=== PATIENT | male | born 1960 | race African-American/Black ===

== ENCOUNTER 2019-05-03 23:24 | Observation (INO) | payer SELFPAY ==
[2019-05-03] MEDS ORDERED: NA CHLORIDE 0.9% 1,000 ML ONE (23:39)
[2019-05-04 00:19] LABS: Absolute Lymphocytes (CBC) 0.8 K/uL (0.7-4.9); Basophils % 0.4 % (0-1.3); Hematocrit 38.9 % (39.6-49.0); Lymphocytes % 7.3 % (15.3-44.8); MPV 9.4 fL (7.6-11.3); RBC Red Blood Cell Count 4.07 M/uL (4.33-5.43)
[2019-05-04 01:03] LABS: Barbiturates NEGATIVE (NEGATIVE); Benzodiazepines NEGATIVE (NEGATIVE); Cocaine POSITIVE (NEGATIVE); METHAMPHETAM NEGATIVE (NEGATIVE); Methadone NEGATIVE (NEGATIVE); Opiates NEGATIVE (NEGATIVE); Phencyclidine NEGATIVE (NEGATIVE); THC Cannibis NEGATIVE (NEGATIVE)
[2019-05-04 01:08] LABS: Potassium 3.7 mmol/L (3.5-5.1); Sodium Level 137 mmol/L (136-145)
[2019-05-04 01:11] LABS: BUN Blood Urea Nitrogen 14 mg/dL (7-18); Bicarbonate 27 mmol/L (21-32); Glucose Level 308 mg/dL (74-106)
[2019-05-04 01:13] LABS: Bilirubin Direct < 0.1 mg/dL (0-0.2)
[2019-05-04 01:19] LABS: ALT/SGPT 28 U/L (12-78); AST/SGOT 30 U/L (15-37); Alkaline Phosphatase 64 U/L (45-117); Bilirubin Total 0.2 mg/dL (0.2-1.0); Protein, Total 8.5 g/dL (6.4-8.2)
[2019-05-04 01:21] LABS: Protime INR 0.94
[2019-05-04 02:03] LABS: Urine Blood NEGATIVE (NEG); Urine Glucose 2+ (NEG); Urine Protein 2+ (NEG); Urine pH 5.5 (5.0-7.0)
[2019-05-04 02:13] LABS: Blood Morphology Comment NOT SEEN (NOT SEEN); Platelet Estimate ADEQ
--- NOTE | 2019-05-04 02:25 | EDPHYS ---
Physician Documentation [facility] Name: Juni Renteria Age: 58 yrs Sex: Male : 1960 Arrival Date: 05/03/2019 Time: 23:25 Bed 6 Private MD: ED Physician Nate Pop HPI: 05/03 23:37 This 58 yrs old Black Male presents to ER via EMS with complaints of AMS, possible rn overdose. 23:37 The patient presents with decreased responsiveness. Onset: The symptoms/episode rn began/occurred just prior to arrival. Possible causes: drug use. Current symptoms: In the emergency department the patient's symptoms have improved. It is unknown whether or not the patient has had similar symptoms in the past. The patient has not recently seen a physician. Per EMS, called out for unresponsiveness, was minimally responsive, given narcan x 2, with improvement. Admits to ETOH/cocaine/marijuana a few hours earlier, but feels like something was in it because "began tripping". Denies trauma. . Historical: - Allergies: 23:29 No Known Allergies; lp1 - Home Meds: 05/04 00:45 Levemir 100 unit/mL subcutaneous soln [Active]; Glipizide Oral [Active]; pravastatin rr5 oral oral [Active]; Metformin Oral [Active]; - PMHx: 05/03 23:29 Diabetes - IDDM; Hyperlipidemia; lp1 - Immunization history:: Adult Immunizations unknown. - Social history:: Smoking status: Patient uses tobacco products, smokes one-half pack cigarettes per day, Patient uses alcohol, street drugs, cocaine, marijuana. - Ebola Screening: : No symptoms or risks identified at this time. - Family history:: not pertinent. - Hospitalizations: : No recent hospitalization is reported. ROS: 23:39 Constitutional: Negative for fever, chills, and weight loss, Eyes: Negative for injury, rn pain, redness, and discharge, Neck: Negative for injury, pain, and swelling, Cardiovascular: Negative for chest pain, palpitations, and edema, Respiratory: Negative for shortness of breath, cough, wheezing, and pleuritic chest pain, Abdomen/GI: Negative for abdominal pain, nausea, vomiting, diarrhea, and constipation, MS/Extremity: Negative for injury and deformity, Skin: Negative for injury, rash, and discoloration, Neuro: Negative for headache, weakness, numbness, tingling, and seizure. Exam: 23:39 Constitutional: Somnolent but awakens to voice Head/Face: Normocephalic, atraumatic. rn Eyes: Pupils equal round and reactive to light, extra-ocular motions intact. No nystagmus ENT: dry MM Cardiovascular: Regular rate and rhythm. No pulse deficits. Respiratory: No increased work of breathing, no retractions or nasal flaring. Abdomen/GI: soft, non-tender MS/ Extremity: Pulses equal, no cyanosis. Neurovascular intact. Full, normal range of motion. Equal circumference. Neuro: Somnolent, arousable easily to voice, moves all 4 ext, follows commands. Vital Signs: 23:28 BP 129 / 89; Pulse 84; Resp 14; Temp 97.3(TE); Pulse Ox 100% on R/A; Weight 72.57 kg lp1 (R); Height 6 ft. 0 in. (182.88 cm); Pain 0/10; 05/04 00:30 BP 121 / 75; Pulse 80; Resp 14; Pulse Ox 96% on R/A; rr5 01:00 BP 131 / 80; Pulse 75; Resp 13; Temp 97.5; Pulse Ox 95% ; rr5 02:00 BP 126 / 70; Pulse 89; Resp 17; Pulse Ox 94% ; rr5 03:00 BP 137 / 92; Pulse 82; Resp 15; Temp 97.5; Pulse Ox 95% ; Pain 0/10; rr5 04:10 BP 126 / 83; Pulse 76; Resp 16; Temp 97.8; Pulse Ox 99% on 1 lpm NC; rr5 05/03 23:28 Body Mass Index 21.70 (72.57 kg, 182.88 cm) lp1 [place] Coma Score: 05/03 23:28 Eye Response: spontaneous(4). Verbal Response: confused(4). Motor Response: obeys rr5 commands(6). Total: 14. MDM: 23:30 Patient medically screened. rn 05/04 02:21 Differential Diagnosis: electrolyte abnormality, intracranial bleed, overdose, volume rn depletion, AMI. Data reviewed: vital signs, nurses notes, lab test result(s), EKG, radiologic studies, CT scan, and as a result, I will admit patient. Counseling: I had a detailed discussion with the patient and/or guardian regarding: the historical points, exam findings, and any diagnostic results supporting the discharge/admit diagnosis, lab results, radiology results, the need for further work-up and treatment in the hospital. Response to treatment: the patient's symptoms have mildly improved after treatment, and as a result, I will admit patient. Admission orders: after a detailed discussion of the patient's condition and case, the admit orders are written by me. ED course: Pt with drug overdose, cocaine ingestion, and elevated trop, will admit for serial markers, and fluids, still sedated but protecting airway.. 05/03 23:34 Order name: Acetaminophen; Complete Time: 01: 05/03 23:34 Order name: Basic Metabolic Panel; Complete Time: : 05/03 23:34 Order name: CBC with Diff rn 05/03 23:34 Order name: ETOH Level; Complete Time: : 05/03 23:34 Order name: Hepatic Function; Complete Time: : 05/03 23:34 Order name: PT-INR; Complete Time: : rn 05/03 23:34 Order name: Ptt, Activated; Complete Time: : 05/03 23:34 Order name: Salicylate; Complete Time: 00: 05/03 23:34 Order name: Urine Drug Screen; Complete Time: : 05/03 23:34 Order name: Urine Dipstick--Ancillary (enter results) cm6 05/04 00:00 Order name: Troponin (emerg Dept Use Only); Complete Time: 01: 05/04 00:34 Order name: Manual Differential EDMA 05/04 02:53 Order name: CKMB Creatine Kinase MB EDMA 05/04 02:53 Order name: CKMB Creatine Kinase MB EDMA 05/03 23:34 Order name: EKG; Complete Time: 23:35 05/03 23:39 Order name: CT Head Brain wo Cont 05/04 02:53 Order name: Heart Healthy EDMA 05/04 02:53 Order name: CKMB Creatine Kinase MB EDMA 05/04 02:53 Order name: CKMB Creatine Kinase MB EDMA 05/04 02:53 Order name: Comprehensive Metabolic Panel [facility] 05/04 02:54 Order name: Comprehensive Metabolic Panel EDMA 05/04 02:54 Order name: Troponin I EDMA 05/04 02:54 Order name: Troponin I EDMA 05/04 02:54 Order name: Troponin I EDMA 05/04 02:54 Order name: Troponin I EDMA 05/04 02:56 Order name: Urinalysis EDMA 05/04 02:56 Order name: CBC with Automated Diff EDMA 05/04 02:56 Order name: CBC with Automated Diff EDMA 05/04 03:08 Order name: EKG Electrocardiogram EDMA 05/03 23:34 Order name: EKG - Nurse/Tech; Complete Time: 23:54 rn 05/03 23:34 Order name: IV Saline Lock; Complete Time: 23:54 rn 05/03 23:34 Order name: Labs collected and sent; Complete Time: 23:54 rn 05/03 23:34 Order name: Urine Dipstick-Ancillary (obtain specimen); Complete Time: 23:52 rn 05/04 03:08 Order name: EKG Electrocardiogram EDMA Administered Medications: 05/03 23:54 Drug: NS 0.9% 1000 ml Route: IV; Rate: 1000 ml; Site: left antecubital; rr5 05/04 01:00 Follow up: Response: No adverse reaction; IV Status: Completed infusion; IV Intake: rr5 1000ml Disposition: 05/04/19 02:24 Hospitalization ordered by Vahe Combs for Observation. Preliminary diagnosis are Altered mental status, unspecified, Cocaine abuse with intoxication, Cocaine abuse with other cocaine-induced disorder - elevated troponin. - Bed requested for Telemetry/MedSurg (observation). - Status is Observation. rr5 - Condition is Stable. - Problem is new. - Symptoms have improved. UTI on Admission? No Signatures: Dispatcher [employer] EDMS Nate Pop MD MD rn Pena, Laura RN RN lp1 Liana Lopes, ART RN cg Juancho Pulido RN RN rr5 Corrections: (The following items were deleted from the chart) 02:59 02:24 Hospitalization Ordered by Vahe Combs MD for Observation. Preliminary cg diagnosis is Altered mental status, unspecified; Cocaine abuse with intoxication; Cocaine abuse with other cocaine-induced disorder - elevated troponin. Bed requested for Telemetry/MedSurg (observation). Status is Observation. Condition is Stable. Problem is new. Symptoms have improved. UTI on Admission? No. rn 04:31 02:59 05/04/2019 02:24 Hospitalization Ordered by Vahe Combs MD for Observation. rr5 Preliminary diagnosis is Altered mental status, unspecified; Cocaine abuse with intoxication; Cocaine abuse with other cocaine-induced disorder - elevated troponin. Bed requested for Telemetry/MedSurg (observation). Status is Observation. Condition is Stable. Problem is new. Symptoms have improved. UTI on Admission? No. cg
--- NOTE | 2019-05-04 02:25 | ER ---
Nurse's Notes [facility] Name: Juni Renteria Age: 58 yrs Sex: Male : 1960 Arrival Date: 05/03/2019 Time: 23:25 Bed 6 Private MD: Diagnosis: Altered mental status, unspecified;Cocaine abuse with intoxication;Cocaine abuse with other cocaine-induced disorder-elevated troponin Presentation: 05/03 23:27 Presenting complaint: EMS states: Called for patient who was unresponsive, on arrival lp1 of EMS, patient breathing but unresponsive, Narcan x2 administered, patient became arousable, continues to be drowsy, admits to smoking marijuana and cocaine today, +ETOH. Transition of care: patient was not received from another setting of care. Onset of symptoms was May 03, 2019. Risk Assessment: Do you want to hurt yourself or someone else? Patient reports no desire to harm self or others. Initial Sepsis Screen: Does the patient meet any 2 criteria? No. Patient's initial sepsis screen is negative. Does the patient have a suspected source of infection? No. Patient's initial sepsis screen is negative. Care prior to arrival: IV initiated. 18 GA, in the left antecubital area, Glucose check: 293. 23:27 Method Of Arrival: EMS: [facility] lp1 23:27 Acuity: CLAUDETTE 2 lp1 Triage Assessment: 23:29 General: Patient using urinal at this time . lp1 Historical: - Allergies: 23:29 No Known Allergies; lp1 - Home Meds: 05/04 00:45 Levemir 100 unit/mL subcutaneous soln [Active]; Glipizide Oral [Active]; pravastatin rr5 oral oral [Active]; Metformin Oral [Active]; - PMHx: 05/03 23:29 Diabetes - IDDM; Hyperlipidemia; lp1 - Immunization history:: Adult Immunizations unknown. - Social history:: Smoking status: Patient uses tobacco products, smokes one-half pack cigarettes per day, Patient uses alcohol, street drugs, cocaine, marijuana. - Ebola Screening: : No symptoms or risks identified at this time. - Family history:: not pertinent. - Hospitalizations: : No recent hospitalization is reported. Screenin:30 Abuse screen: Denies threats or abuse. Denies injuries from another. Nutritional lp1 screening: No deficits noted. Tuberculosis screening: No symptoms or risk factors identified. Fall Risk Total Morton Fall Scale indicates High Risk Score (45 or more points). Fall prevention measures have been instituted. Side Rails Up X 2 Family Present and informed to notify staff if the need to leave the bedside As available patient and family educated on Fall Prevention Program and Strategies. Assessment: 23:30 General: Appears in no apparent distress. Behavior is drowsy. rr5 23:30 Pain: Unable to use pain scale. Patient is disoriented. Neuro: Level of Consciousness rr5 is confused. Cardiovascular: Capillary refill < 3 seconds Patient's skin is warm and dry. Respiratory: Airway is patent Respiratory effort is even, unlabored, Respiratory pattern is regular, symmetrical. GI: No signs and/or symptoms were reported involving the gastrointestinal system. : No signs and/or symptoms were reported regarding the genitourinary system. EENT: No signs and/or symptoms were reported regarding the EENT system. Derm: Skin is intact, is healthy with good turgor, Skin temperature is warm. Musculoskeletal: Capillary refill < 3 seconds. 05/04 00:40 Reassessment: Patient appears in no apparent distress at this time. Patient is alert, rr5 oriented x 3, equal unlabored respirations, skin warm/dry/pink. patient more awake responsive and answered questions correctly. 02:30 Reassessment: Patient appears in no apparent distress at this time. Patient is alert, rr5 oriented x 3, equal unlabored respirations, skin warm/dry/pink. vital signs taken and recorded. Patient states feeling better. Patient states symptoms have improved. 03:30 Reassessment: Patient appears in no apparent distress at this time. Patient is alert, rr5 oriented x 3, equal unlabored respirations, skin warm/dry/pink. resting eyes closed breathing spontaneously at room air. Vital Signs: 05/03 23:28 BP 129 / 89; Pulse 84; Resp 14; Temp 97.3(TE); Pulse Ox 100% on R/A; Weight 72.57 kg lp1 (R); Height 6 ft. 0 in. (182.88 cm); Pain 0/10; 05/04 00:30 BP 121 / 75; Pulse 80; Resp 14; Pulse Ox 96% on R/A; rr5 01:00 BP 131 / 80; Pulse 75; Resp 13; Temp 97.5; Pulse Ox 95% ; rr5 02:00 BP 126 / 70; Pulse 89; Resp 17; Pulse Ox 94% ; rr5 03:00 BP 137 / 92; Pulse 82; Resp 15; Temp 97.5; Pulse Ox 95% ; Pain 0/10; rr5 04:10 BP 126 / 83; Pulse 76; Resp 16; Temp 97.8; Pulse Ox 99% on 1 lpm NC; rr5 05/03 23:28 Body Mass Index 21.70 (72.57 kg, 182.88 cm) lp1 [place] Coma Score: 05/03 23:28 Eye Response: spontaneous(4). Verbal Response: confused(4). Motor Response: obeys rr5 commands(6). Total: 14. ED Course: 23:25 Patient arrived in ED. ds1 23:28 Triage completed. lp1 23:29 Arm band placed on. lp1 23:30 Nate Pop MD is Attending Physician. rn 23:30 Patient has correct armband on for positive identification. Placed in gown. Bed in low lp1 position. environmental monitoring specialist on. Pulse ox on. NIBP on. 23:34 Juancho Pulido, ART is Primary Nurse. rr5 23:45 Maintain EMS IV. Dressing intact. Good blood return noted. Site clean \T\ dry. Gauge \T\ rr 5 site: G18 left AC. 23:50 Initial lab(s) drawn, by me, sent to lab. rr5 05/04 00:40 CT Head Brain wo Cont In Process Unspecified. EDMS 01:01 CT completed. Patient tolerated procedure well. Patient moved to CT via stretcher. Patient moved back from CT. 02:23 Vahe Combs MD is Hospitalizing Provider. rn 03:39 No provider procedures requiring assistance completed. Patient admitted, IV remains in rr5 place. intact, No redness/swelling at site. Administered Medications: 05/03 23:54 Drug: NS 0.9% 1000 ml Route: IV; Rate: 1000 ml; Site: left antecubital; rr5 05/04 01:00 Follow up: Response: No adverse reaction; IV Status: Completed infusion; IV Intake: rr5 1000ml Intake: 01:00 IV: 1000ml; Total: 1000ml. rr5 Output: 00:49 Urine: 400ml (Voided); Total: 400ml. rr5 Outcome: 02:24 Decision to Hospitalize by Provider. rn 03:43 Admitted to Med/surg accompanied by tech, via stretcher, room 206, with chart, Report rr5 called to nelida 03:43 Condition: stable 03:43 Instructed on the need for admit. 04:31 Patient left the ED. rr5 Signatures: Dispatcher [employer] EDEdis Mejias Demi ds1 Nate Pop MD MD rn Pena, Laura, RN RN lp1 Juancho Pulido RN RN rr5 Corrections: (The following items were deleted from the chart) 03:49 12 23:30 Neuro: Level of Consciousness is confused, Oriented to person, place, rr5 rr5
[2019-05-04] MEDS ORDERED: ACETAMINOPHEN 500 MG TAB PO PRN (02:49)
[2019-05-04] MEDS ORDERED: ONDANSETRON 4 MG/2 ML VIAL IV PRN (02:49)
--- NOTE | 2019-05-04 02:58 | P.HP ---
Certification for Inpatient Patient admitted to: Observation With expected LOS: <2 Midnights Practitioner: I am a practitioner with admitting privileges, knowledge of patient current condition, hospital course, and medical plan of care. Services: Services provided to patient in accordance with Admission requirements found in Title 42 Section 412.3 of the Code of Federal Regulations Patient History Date of Service: 05/04/19 Reason for admission: AMS History of Present Illness: 58 yo AAM with no significant past medical history came with altered mental status . Patient is drowsy but arousable hence most of the history is obtained from the family member who is at the bedside. He was brought to ER as he was found decrease responsive with possible drug usage . The family Emetrol that she call on EMS because of the altered mental status and had given 2 doses of Narcan. He has been using alcohol or marijuana and cocaine before the episode happened. Denies any chest pain or shortness of breath. No fever no chills no syncope or seizure-like episodes . Denies any nausea vomiting and diarrhea. Appears more awake alert at the time of examination. He was also found to have elevated troponin and was admitted for close monitoring and management. Home medications list reviewed: Yes - Past Medical/Surgical History Past Medical History: Reviewed- Non-Contributory Past Surgical History: Reviewed- Non-Contributory - Family History Family History: Reviewed- Non-Contributory - Social History Smoking Status: Current every day smoker Review of Systems 10-point ROS is otherwise unremarkable Physical Examination - Vital Signs Temperature: 98.1 F Blood Pressure: 136/88 Pulse: 88 Respirations: 18 - Physical Exam General: Alert, In no apparent distress HEENT: Atraumatic, Normocephalic Neck: Supple, 2+ carotid pulse no bruit Respiratory: Clear to auscultation bilaterally, Normal air movement Cardiovascular: Normal pulses, Regular rate/rhythm Capillary refill: <2 Seconds Gastrointestinal: Soft and benign, W/out hepatosplenomegaly Musculoskeletal: No clubbing, No swelling Integumentary: No rashes, No breakdown Neurological: Other (drowsy) Lymphatics: No axilla or inguinal lymphadenopathy External genitalia: Deferred Rectal: Deferred - Studies Laboratory Data (last 24 hrs) 05/03/19 23:59: PT 11.1, INR 0.94, APTT 24.9 05/03/19 23:45: WBC 11.0 H, Hgb 12.8 L, Hct 38.9 L, Plt Count 254 05/03/19 23:34: Sodium 137, Potassium 3.7, BUN 14, Creatinine 1.12, Glucose 308 H, Total Bilirubin 0.2, AST 30, ALT 28, Alkaline Phosphatase 64 Assessment and Plan - Problems (Diagnosis) (1) Acute encephalopathy Current Visit: Yes Status: Acute (2) Substance abuse Current Visit: Yes Status: Acute (3) Elevated troponin Current Visit: Yes Status: Acute - Plan Acute encephalopathy possibly due to substance abuse Polysubstance abuse Elevated troponin Plan Monitor under telemetry Trend cardiac enzymes IV fluids Discuss about substance abuse and about the need to stop discussed about the resources like rehab Start on aspirin, statin will get a repeat EKG in a.m. GI/DVT prophylaxis Discharge Plan: Home Plan to discharge in: 24 Hours - Advance Directives Does patient have a Living Will: No Does patient have a Durable POA for Healthcare: No Time Spent Managing Pts Care (In Minutes): 43
[2019-05-04 03:46] LABS: CKMB Creatine Kinase MB 3.6 ng/mL (0.3-3.6); Troponin I 0.07 ng/mL (0.0-0.045)
[2019-05-04] MEDS: NA CHLORIDE 0.9% 1,000 ML IV SCH ×2 (05:09→13:08)
[2019-05-04 08:18] VITALS: O2SAT 92
[2019-05-04] MEDS ORDERED: POTASSIUM CL SA 10 MEQ TAB PO ONE (09:00)
[2019-05-04] MEDS ORDERED: ASPIRIN EC 81 MG TAB PO SCH (09:00)
[2019-05-04] MEDS ORDERED: ENOXAPARIN 40 MG/0.4 ML SQ SCH (09:00)
[2019-05-04 11:43] LABS: Troponin I 0.26 ng/mL (0.0-0.045)
--- NOTE | 2019-05-04 11:44 | EKG ---
Test Date: 2019-05-03 Test Time: 23:57:16 News Video Editor: SCOTTIE MEASUREMENT RESULTS: Intervals: Rate: 84 NE: 206 QRSD: 168 QT: 434 QTc: 512 [place]: P: 58 NE: 206 QRS: -7 T: 35 INTERPRETIVE STATEMENTS: Normal sinus rhythm Right bundle branch block Minimal voltage criteria for LVH, may be normal variant Abnormal ECG No previous ECG available for comparison Electronically Signed On 05-04-19 11:41:59 EQUIPMENT CLEANER by Yossi Chapa
[2019-05-04 13:22] VITALS: BMI 21.5
[2019-05-04 14:36] VITALS: TEMP 98.6
[2019-05-04 17:57] VITALS: BP 139/85
[2019-05-04] MEDS ORDERED: METOPROLOL TAR 25 MG TAB PO SCH (18:00)
[2019-05-04 19:40] LABS: CKMB Creatine Kinase MB 2.9 ng/mL (0.3-3.6); Troponin I 0.32 ng/mL (0.0-0.045)
[2019-05-04] MEDS ORDERED: ATORVASTATIN 40 MG TAB PO SCH (21:00)
--- NOTE | 2019-05-05 04:04 | DS ---
Date of Discharge: 05/04/2019 Discharge Diagnoses: 1.Mental status change, resolved. 2.Drug abuse with cocaine. 3.Elevated troponin. For history of present illness, please refer to patient's admission note. Procedure: CT of the head was negative on preliminary, there is no other report available at the walker e of discharge. Consult: None. Hospital Course: Initially, the patient presented with change in mental status. He was very drowsy, but arousable. Urine drug screen was positive for cocaine. Patient apparently was using cocaine as well as marijuana. Patient's labs showed borderline elevated troponin at 0.07, second set was eleva rosalina at 0.26. Patient refused to stay in the hospital to be ruled out. We will consult Cardiology an d he decided to leave against medical advice. He signed AMA and left. Patient understands the risk of coronary artery spasm, heart attack with cocaine abuse. He is advised strongly to avoid the use o f cocaine. Otherwise there was no discharge medications and discharge instructions. Patient was exa mined this morning by the admitting physician. LAURYN/JOHNATHON Voice ID: [id number] Report ID: [id number]
--- NOTE | 2019-05-05 08:40 | RAD REPORT ---
EXAM DESCRIPTION: CT - Head Brain Wo Cont - 05/04/2019 5:23 am CLINICAL HISTORY: 58 years Male CONFUSED TECHNIQUE: Contiguous axial CT images obtained through the brain without IV contrast. Coronal and sa gittal reformats also provided. This CT exam was performed according to our departmental dose-optimization program, which includes on e or more of the following dose reduction techniques: automated exposure control, adjustment of the m A and/or kV according to patient size, and/or use of iterative reconstruction technique. COMPARISON: No prior exams provided for comparison. FINDINGS: There is no intracranial hemorrhage, extra-axial collection, or acute transcortical infarc tion. The ventricles are normal in size and contour without mass-effect or midline shift. Osseous structures are normal. The paranasal sinuses and mastoid air cells are clear. IMPRESSION: No acute intracranial abnormalities. Electronically signed by: Yvonne Jerome MD 05/04/2019 12:46 AM CONDUIT BENDER Due to temporary technical issues with the PACS/Fluency reporting system, reports are being signed by the in house radiologist as a courtesy to ensure prompt reporting. The interpreting radiologist is f ully responsible for the content of the report.
[2019-05-05] MEDS ORDERED: ENOXAPARIN 80 MG/0.8 ML SQ SCH (09:00)
[2019-05-05] MEDS ORDERED: ASPIRIN 325 MG TAB PO SCH (09:00)
== END 2019-05-04 20:00 | disposition left against medical advice (07) ==
LOC: ER 23:24 → ERHOLD 05-04 03:27 → 2ND 05-04 03:58
PROVIDERS: ADMIT Family Medicine; ATTEND Family Medicine
DX: R41.82 Altered mental status, unspecified (principal); F14.10 Cocaine abuse, uncomplicated; R79.89 Other specified abnormal findings of blood chemistry; Z53.29 Procedure and treatment not carried out because of patient's decision for other reasons; F17.210 Nicotine dependence, cigarettes, uncomplicated
CPT/HCPCS: 36415; 70450; 80048; 80076; 80307; 80320; 80329; 81003; 82553; 82947; 84484; 85025; 85610; 85730; 93005; 94760; 96360; 99285; G0378; J1650; J7030

== ENCOUNTER 2019-05-17 08:58 | Emergency (ER) | payer SELFPAY ==
--- OUTSIDE RECORDS SUMMARY | 2019-05-17 09:00 | XMS REPORT ---
:1960 [facility] Address [address] [place] [address] Care Team Providers Name Role Phone Unavailable Unavailable Unavailable Problems This patient has no known problems. Allergies, Adverse Reactions, Alerts This patient has no known allergies or adverse reactions. Medications This patient has no known medications. Results Test Description Test Time Test Comments Text Results Atomic Results Result Comments Comprehensive Metabolic Panel 2017-09-05 14:09:47 Test Item Value Reference Range Comments Sodium Level (test code=Sodium Level) 140.0 mmol/L 135.0-145.0 Potassium Level (test code=Potassium Level) 5.1 mmol/L 3.5-5.1 Chloride Level (test code=Chloride Level) 96 mmol/L 98-105 CO2 (test code=CO2) 18 mmol/L 22-29 Anion Gap (test code=Anion Gap) 26 mmol/L 7-16 BUN (test code=BUN) 13.30 mg/dL 6.00-20.00 Creatinine Level (test code=Creatinine Level) 0.90 mg/dL 0.70-1.20 BUN/Creat Ratio (test code=BUN/Creat Ratio) 15 Glucose Level (test code=Glucose Level) 144 mg/dL 70-115 Calcium Level (test code=Calcium Level) 9.8 mg/dL 8.3-10.5 Alk Phos (test code=Alk Phos) 67 U/L 40-129 Bilirubin Total (test code=Bilirubin Total) 0.4 mg/dL 0.1-0.9 Albumin Level (test code=Albumin Level) 4.8 g/dL 3.5-5.2 Protein Total (test code=Protein Total) 8.5 g/dL 6.4-8.3 ALT (test code=ALT) 25 U/L 1-41 AST (test code=AST) 34 U/L 1-40 Globulin (test code=Globulin) 3.7 g/dL 2.9-3.1 A/G Ratio (test code=A/G Ratio) 1.3 ratio Comprehensive Metabolic [id number] 14:09:47 Test Item Value Reference Range Comments Sodium Level (test 140.0 mmol/L 135.0-145.0 code=Sodium Level) Potassium Level (test 5.1 mmol/L 3.5-5.1 code=Potassium Level) Chloride Level (test 96 mmol/L 98-105 code=Chloride Level) CO2 (test code=CO2) 18 mmol/L 22-29 Anion Gap (test 26 mmol/L 7-16 code=Anion Gap) BUN (test code=BUN) 13.30 mg/dL 6.00-20.00 Creatinine Level (test 0.90 mg/dL 0.70-1.20 code=Creatinine Level) BUN/Creat Ratio (test 15 code=BUN/Creat Ratio) Glucose Level (test 144 mg/dL 70-115 code=Glucose Level) Calcium Level (test 9.8 mg/dL 8.3-10.5 code=Calcium Level) Alk Phos (test code=Alk 67 U/L 40-129 Phos) Bilirubin Total (test 0.4 mg/dL 0.1-0.9 code=Bilirubin Total) Albumin Level (test 4.8 g/dL 3.5-5.2 code=Albumin Level) Protein Total (test 8.5 g/dL 6.4-8.3 code=Protein Total) ALT (test code=ALT) 25 U/L 1-41 AST (test code=AST) 34 U/L 1-40 Globulin (test 3.7 g/dL 2.9-3.1 code=Globulin) A/G Ratio (test code=A/G 1.3 ratio Ratio) eGFR AA (test code=eGFR >60 mL/min/1.73 m2 eGFR (estimated AA) Glomerular Filtration Rate) is an estimated value, calculated from the patient's serum creatinine using the MDRD equation. It is NOT the patient's actual GFR. The eGFR provides a more clinically useful measure of kidney disease than serum creatinine alone.This calculation takes sex and race into account, if the information is provided. If the race is not provided, and the patient is -Swiss, multiply by 1.212. If sex is not provided, and the patient is female, multiply by 0.742. Results for patients <18 years of age have not been validated by the MDRD study and should be interpreted with caution. eGFR Result Interpretation:eGFR > or=60 is in the Normal RangeeGFR < 60 may mean kidney diseaseeGFR < 15 may mean kidney failure Ranges recommended by the National Kidney Foundation, http://nkdep.nih.gov Comprehensive Metabolic [id number] 14:09:47 Test Item Value Reference Range Comments Sodium Level (test 140.0 mmol/L 135.0-145.0 code=Sodium Level) Potassium Level (test 5.1 mmol/L 3.5-5.1 code=Potassium Level) Chloride Level (test 96 mmol/L 98-105 code=Chloride Level) CO2 (test code=CO2) 18 mmol/L 22-29 Anion Gap (test 26 mmol/L 7-16 code=Anion Gap) BUN (test code=BUN) 13.30 mg/dL 6.00-20.00 Creatinine Level (test 0.90 mg/dL 0.70-1.20 code=Creatinine Level) BUN/Creat Ratio (test 15 code=BUN/Creat Ratio) Glucose Level (test 144 mg/dL 70-115 code=Glucose Level) Calcium Level (test 9.8 mg/dL 8.3-10.5 code=Calcium Level) Alk Phos (test code=Alk 67 U/L 40-129 Phos) Bilirubin Total (test 0.4 mg/dL 0.1-0.9 code=Bilirubin Total) Albumin Level (test 4.8 g/dL 3.5-5.2 code=Albumin Level) Protein Total (test 8.5 g/dL 6.4-8.3 code=Protein Total) ALT (test code=ALT) 25 U/L 1-41 AST (test code=AST) 34 U/L 1-40 Globulin (test 3.7 g/dL 2.9-3.1 code=Globulin) A/G Ratio (test code=A/G 1.3 ratio Ratio) eGFR AA (test code=eGFR >60 mL/min/1.73 m2 eGFR (estimated AA) Glomerular Filtration Rate) is an estimated value, calculated from the patient's serum creatinine using the MDRD equation. It is NOT the patient's actual GFR. The eGFR provides a more clinically useful measure of kidney disease than serum creatinine alone.This calculation takes sex and race into account, if the information is provided. If the race is not provided, and the patient is -Swiss, multiply by 1.212. If sex is not provided, and the patient is female, multiply by 0.742. Results for patients <18 years of age have not been validated by the MDRD study and should be interpreted with caution. eGFR Result Interpretation:eGFR > or=60 is in the Normal RangeeGFR < 60 may mean kidney diseaseeGFR < 15 may mean kidney failure Ranges recommended by the National Kidney Foundation, http://nkdep.nih.gov eGFR Non-AA (test >60.00 mL/min/1.73 eGFR (estimated code=eGFR Non-AA) m2 Glomerular Filtration Rate) is an estimated value, calculated from the patient's serum creatinine using the MDRD equation. It is NOT the patient's actual GFR. The eGFR provides a more clinically useful measure of kidney disease than serum creatinine alone.This calculation takes sex and race into account, if the information is provided. If the race is not provided, and the patient is -Swiss, multiply by 1.212. If sex is not provided, and the patient is female, multiply by 0.742. Results for patients <18 years of age have not been validated by the MDRD study and should be interpreted with caution. eGFR Result Interpretation:eGFR > or=60 is in the Normal RangeeGFR < 60 may mean kidney diseaseeGFR < 15 may mean kidney failure Ranges recommended by the National Kidney Foundation, http://nkdep.nih.gov Troponin [id number] 13:44:09 Test Item Value Reference Range Comments Troponin-T (test code=Troponin-T) <0.010 ng/mL 0.000-0.090 Pro B Natriuretic [id number] 13:44:08 Test Item Value Reference Range Comments NT-proBNP (test code=NT-proBNP) 24 pg/mL 0-124 XR Chest 1 View [id number] 11:29:07Patient: URBAN MCNEILL Date/Time09/04/201711:01 CDTReason for ExamCoughReportXR Chest 1 View FrontalLOCATION: [id number]: CoughCOMPARISON: NoneFINDINGS:The cardiomediastinal silhouette is unremarkable. There is no focal consolidation. There is no pleural effusion or pneumothorax.IMPRESSION:No acute cardiopulmonary disease. Final Dictated by: MD Posada Daisha ADictated DT/TM: 09/04/2017 11:20 amSigned by : MD Posada Daisha ASigned (Electronic Signature): 09/04/2017 11:29 am
[2019-05-17] MEDS ORDERED: NA CHLORIDE 0.9% 1,000 ML ONE (09:11)
[2019-05-17 09:28] LABS: Absolute Lymphocytes (CBC) 1.3 K/uL (0.7-4.9); Basophils % 0.7 % (0-1.3); Hematocrit 42.1 % (39.6-49.0); MPV 8.6 fL (7.6-11.3)
[2019-05-17 09:50] LABS: ALT/SGPT 20 U/L (12-78); AST/SGOT 14 U/L (15-37); Alkaline Phosphatase 71 U/L (45-117); BUN Blood Urea Nitrogen 17 mg/dL (7-18); Bicarbonate 28 mmol/L (21-32); Bilirubin Direct 0.1 mg/dL (0-0.2); Bilirubin Total 0.3 mg/dL (0.2-1.0); Glucose Level 184 mg/dL (74-106); Potassium 3.8 mmol/L (3.5-5.1); Protein, Total 8.4 g/dL (6.4-8.2); Sodium Level 139 mmol/L (136-145)
[2019-05-17 09:51] LABS: Albumin 3.7 g/dL (3.4-5.0); Lipase 1298 U/L (73-393)
--- NOTE | 2019-05-17 10:29 | RAD REPORT ---
EXAM DESCRIPTION: CT - Abdomen Pelvis W Contrast - 05/17/2019 10:13 am CLINICAL HISTORY: ABD PAIN, right upper quadrant pain COMPARISON: No comparisonsAbdomen Exam Limited dated 05/17/2019 TECHNIQUE: Biphasic, helical CT imaging of the abdomen and pelvis was performed following 100 ml non -ionic IV contrast. No oral contrast was given. All CT scans are performed using dose optimization technique as appropriate and may include automated exposure control or mA/KV adjustment according to patient size. FINDINGS: No suspicious findings in the lung bases. The liver, spleen, and pancreas show no suspicious findings. Gallbladder and biliary tree are also wi thout suspicious finding. Symmetric renal function is seen with no hydronephrosis or suspicious renal mass. No pyelonephritis o r acute parenchymal process. No adrenal abnormalities. There is a 17 millimeter sized area of lobulation at the base of the bladder. This could be a bladder base mass or could be lobulated prostate mass projecting into the bladder base. No gastric abnormality seen. No dilated large or small bowel. Patient has a large amount of stool sid t fills but does not dilate the entirety of the colon. The appendix is not uniquely identifiable. No direct or indirect evidence for appendicitis. Patient has a near absence of intraperitoneal fat which limits evaluation. Patient has a right inguinal hernia containing a loop of small bowel. Small bowel is not obstructed. No edema of the herniated bowel loop evident. The sparse amount of fat that is pr esent does not appear congested or edematous. No free air, free fluid or pneumatosis identifiable. No bulky lymphadenopathy. No acute bone findings seen. Lumbosacral transition body is present labeled L5. The L4-5 disc level s hows degenerative gas in the disc space. There is a prominent disc bulge or broad-based herniation at this level. No central spinal stenosis. Foramina are narrowed at L4-5. IMPRESSION: Patient has a right inguinal hernia containing small bowel. The herniated bowel loops do not appear thickened or edematous. Small bowel is not obstructed. Lobulated 17 millimeter mass at the bladder base. This could be a bladder mass, prostate mass or lobu lated prostate. Large amount of stool filling but not dilating the entirety of the colon. The appendix is not uniquel y identifiable. The near complete absence of intra-abdominal fat limits assessment. L4-5 degenerative disc disease with significant protruding disc. No central spinal stenosis.
--- NOTE | 2019-05-17 10:30 | RAD REPORT ---
EXAM DESCRIPTION: US - Abdomen Exam Limited - 05/17/2019 10:02 am CLINICAL HISTORY: ABD PAIN COMPARISON: No comparisons FINDINGS: No mobile gallstones or sludge identified. There are several 4 mm or less echogenic foci a dherent to the gallbladder wall. These are nonshadowing and relatively low in echogenicity. These are all believed to be gallbladder polyps. There is no wall thickening or pericholecystic fluid. No common duct stone or biliary tree dilatation identified. IMPRESSION: Multiple small gallbladder polyps are seen. No gallstones or acute gallbladder finding. No duct stone or biliary tree dilatation.
--- NOTE | 2019-05-17 11:06 | EDPHYS ---
Physician Documentation [facility] Name: Juni Renteria Age: 58 yrs Sex: Male : 1960 Arrival Date: 05/17/2019 Time: 09:00 Bed 18 Private MD: ED Physician Nate Pop HPI: 05/17 09:39 This 58 yrs old Black Male presents to ER via Ambulatory with complaints of Abdominal kb Pain. 09:39 The patient presents with abdominal pain in the periumbilical area. Onset: The kb symptoms/episode began/occurred 2 day(s) ago. The symptoms do not radiate. Associated signs and symptoms: none. 09:46 The symptoms are described as constant. Modifying factors: The symptoms are alleviated kb by nothing, the symptoms are aggravated by food. Severity of pain: At its worst the pain was moderate in the emergency department the pain is unchanged. The patient has not experienced similar symptoms in the past. The patient has not recently seen a physician. Pt reports periumbilical pain that started 2 days ago and radiates to right side. States "I googled everything I could think of and the only thing that matches my symptoms is the appendix so I need you to test that.". Historical: - Allergies: 09:11 No Known Allergies; ss - Home Meds: 09:11 Metformin Oral [Active]; Glipizide Oral [Active]; ss - PMHx: 09:11 Diabetes - IDDM; Hyperlipidemia; ss - PSHx: 09:11 None; ss - Immunization history:: Adult Immunizations up to date. - Social history:: Smoking status: Patient uses tobacco products, smokes one-half pack cigarettes per day. - Ebola Screening: : Patient denies exposure to infectious person Patient denies travel to an Ebola-affected area in the 21 days before illness onset. ROS: 09:38 Constitutional: Negative for fever, chills, and weight loss, ENT: Negative for injury, kb pain, and discharge, Neck: Negative for injury, pain, and swelling, Cardiovascular: Negative for chest pain, palpitations, and edema, Respiratory: Negative for shortness of breath, cough, wheezing, and pleuritic chest pain, Back: Negative for injury and pain, MS/Extremity: Negative for injury and deformity, Skin: Negative for injury, rash, and discoloration, Neuro: Negative for headache, weakness, numbness, tingling, and seizure. 09:38 Abdomen/GI: Positive for abdominal pain. Exam: 09:38 Constitutional: This is a well developed, well nourished patient who is awake, alert, kb and in no acute distress. Head/Face: Normocephalic, atraumatic. ENT: Nares patent. No nasal discharge, no septal abnormalities noted. Tympanic membranes are normal and external auditory canals are clear. Oropharynx with no redness, swelling, or masses, exudates, or evidence of obstruction, uvula midline. Mucous membranes moist. Neck: Trachea midline, no thyromegaly or masses palpated, and no cervical lymphadenopathy. Supple, full range of motion without nuchal rigidity, or vertebral point tenderness. No Meningismus. Chest/axilla: Normal chest wall appearance and motion. Nontender with no deformity. No lesions are appreciated. Cardiovascular: Regular rate and rhythm with a normal S1 and S2. No gallops, murmurs, or rubs. Normal PMI, no JVD. No pulse deficits. Respiratory: Lungs have equal breath sounds bilaterally, clear to auscultation and percussion. No rales, rhonchi or wheezes noted. No increased work of breathing, no retractions or nasal flaring. Back: No spinal tenderness. No costovertebral tenderness. Full range of motion. Skin: Warm, dry with normal turgor. Normal color with no rashes, no lesions, and no evidence of cellulitis. MS/ Extremity: Pulses equal, no cyanosis. Neurovascular intact. Full, normal range of motion. Neuro: Awake and alert, GCS 15, oriented to person, place, time, and situation. Cranial nerves II-XII grossly intact. Motor strength 5/5 in all extremities. Sensory grossly intact. Cerebellar exam normal. Normal gait. 09:38 Abdomen/GI: Inspection: abdomen appears normal, Bowel sounds: normal, in all quadrants, Palpation: nontender, in the left upper quadrant, right lower quadrant and left lower quadrant, moderate abdominal tenderness, in the right upper quadrant. Vital Signs: 09:11 BP 122 / 72; Pulse 71; Resp 16; Pulse Ox 100% ; Weight 71.21 kg; Height 6 ft. 0 in. ss (182.88 cm); Pain 7/10; 10:00 BP 115 / 76; Pulse 69; Resp 17; Pulse Ox 100% on R/A; rb1 10:30 BP 123 / 74; Pulse 65; Resp 18; Pulse Ox 100% on R/A; rb1 11:21 BP 130 / 76; Pulse 68; Resp 19; Pulse Ox 100% on R/A; rb1 09:11 Body Mass Index 21.29 (71.21 kg, 182.88 cm) ss MDM: 09:00 Patient medically screened. kb 09:38 Data reviewed: vital signs, nurses notes. Data interpreted: Pulse oximetry: on room air kb is 100 %. Interpretation: normal. 11:02 Counseling: I had a detailed discussion with the patient and/or guardian regarding: the kb historical points, exam findings, and any diagnostic results supporting the discharge/admit diagnosis, lab results, radiology results, the need for outpatient follow up, a general surgeon, a mail room, a urologist, to return to the emergency department if symptoms worsen or persist or if there are any questions or concerns that arise at home. ED course: Pt educated on diagnostic findings. Pt reports he has known about the hernia and it comes out when he stands up and he pushes it back in. Educated to follow up with Urology for bladder mass. Verbal understanding received. . 05/17 09:06 Order name: Basic Metabolic Panel; Complete Time: 09:55 kb 05/17 09:06 Order name: CBC with Diff; Complete Time: 09:44 kb 05/17 09:06 Order name: Hepatic Function; Complete Time: 09:55 kb 05/17 09:06 Order name: Lipase; Complete Time: 09:55 kb 05/17 09:06 Order name: US Abdomen Limited; Complete Time: 10:32 kb 05/17 11:14 Order name: Urine Dipstick--Ancillary (enter results) ms 05/17 09:06 Order name: IV Saline Lock; Complete Time: 09:22 kb 05/17 09:06 Order name: Labs collected and sent; Complete Time: 09:22 kb 05/17 09:06 Order name: CT Abd/Pelvis - IV Contrast Only; Complete Time: 10:32 kb 05/17 11:05 Order name: Urine Dipstick-Ancillary (obtain specimen); Complete Time: 11:13 kb Administered Medications: 09:15 Drug: NS 0.9% 1000 ml Route: IV; Rate: 1000 ml; Site: right antecubital; rb1 10:22 Follow up: IV Status: Completed infusion rb1 11:15 Drug: TORadol - Ketorolac 15 mg Route: IVP; Site: right antecubital; rb1 11:38 Follow up: Response: No adverse reaction rb1 11:15 Drug: Magnesium Citrate Liquid 300 ml Route: PO; rb1 11:38 Follow up: Response: No adverse reaction rb1 Disposition: 15:34 Co-signature as Attending Physician, Nate Pop MD. rn Disposition: 05/17/19 11:05 Discharged to Home. Impression: Bladder mass, Generalized abdominal pain, Inguinal hernia. - Condition is Stable. - Discharge Instructions: Inguinal Hernia, Adult, [id number], Abdominal Pain, Adult, Dota-[id number]. - Prescriptions for Zofran 4 mg Oral Tablet - take 1 tablet by ORAL route every 6 hours As needed; 20 tablet. Diclofenac Sodium 75 mg Oral Tablet, Delayed Release (E.C.) - take 1 tablet by ORAL route 2 times per day As needed; 30 tablet. - Medication Reconciliation Form, Thank You Letter, Antibiotic Education, Prescription Opioid Use form. - Follow up: Emergency Department; When: As needed; Reason: Worsening of condition. Follow up: Private Physician; When: 2 - 3 days; Reason: Recheck today's complaints, Continuance of care, Re-evaluation by your physician. Follow up: Dipak Kyle MD; When: 2 - 3 days; Reason: Recheck today's complaints. Signatures: Dispatcher [employer] Samantha Allred, GRADUATE FELLOW-C GRADUATE FELLOW-Ckb Nate Pop MD MD rn Smirch, Shelby, RN RN ss Barber, Rebecca, RN RN rb1 Corrections: (The following items were deleted from the chart) 11:06 11:05 05/17/2019 11:05 Discharged to Home. Impression: Bladder mass; Generalized kb abdominal pain; Inguinal hernia. Condition is Stable. Forms are Medication Reconciliation Form, Thank You Letter, Antibiotic Education, Prescription Opioid Use. Follow up: Emergency Department; When: As needed; Reason: Worsening of condition. Follow up: Private Physician; When: 2 - 3 days; Reason: Recheck today's complaints, Continuance of care, Re-evaluation by your physician. kb 11:39 11:06 05/17/2019 11:05 Discharged to Home. Impression: Bladder mass; Generalized rb1 abdominal pain; Inguinal hernia. Condition is Stable. Discharge Instructions: Inguinal Hernia, Adult, [id number], Abdominal Pain, Adult, [id number]. Prescriptions for Zofran 4 mg Oral Tablet - take 1 tablet by ORAL route every 6 hours As needed; 20 tablet, Diclofenac Sodium 75 mg Oral Tablet, Delayed Release (E.C.) - take 1 tablet by ORAL route 2 times per day As needed; 30 tablet. and Forms are Medication Reconciliation Form, Thank You Letter, Antibiotic Education, Prescription Opioid Use. Follow up: Emergency Department; When: As needed; Reason: Worsening of condition. Follow up: Private Physician; When: 2 - 3 days; Reason: Recheck today's complaints, Continuance of care, Re-evaluation by your physician. Follow up: Dipak Kyle; When: 2 - 3 days; Reason: Recheck today's complaints. kb
--- NOTE | 2019-05-17 11:06 | ER ---
Nurse's Notes [facility] Name: Juni Renteria Age: 58 yrs Sex: Male : 1960 Arrival Date: 05/17/2019 Time: 09:00 Bed 18 Private MD: Diagnosis: Bladder mass;Generalized abdominal pain;Inguinal hernia Presentation: 05/17 09:09 Presenting complaint: Patient states: pain to umbilicus that radiates to RUQ that began ss 2 days ago and became worse last night. Denies fever. Pain is worse after eating. Transition of care: patient was not received from another setting of care. Onset of symptoms was May 15, 2018. Risk Assessment: Do you want to hurt yourself or someone else? Patient reports no desire to harm self or others. Initial Sepsis Screen: Does the patient meet any 2 criteria? No. Patient's initial sepsis screen is negative. Does the patient have a suspected source of infection? No. Patient's initial sepsis screen is negative. Care prior to arrival: None. 09:09 Method Of Arrival: Ambulatory ss 09:09 Acuity: CLAUDETTE 3 ss Historical: - Allergies: 09:11 No Known Allergies; ss - Home Meds: 09:11 Metformin Oral [Active]; Glipizide Oral [Active]; ss - PMHx: 09:11 Diabetes - IDDM; Hyperlipidemia; ss - PSHx: 09:11 None; ss - Immunization history:: Adult Immunizations up to date. - Social history:: Smoking status: Patient uses tobacco products, smokes one-half pack cigarettes per day. - Ebola Screening: : Patient denies exposure to infectious person Patient denies travel to an Ebola-affected area in the 21 days before illness onset. Screenin:05 Abuse screen: Denies threats or abuse. Nutritional screening: pain increases after the rb1 pt. eats.. Tuberculosis screening: No symptoms or risk factors identified. Fall Risk None identified. Assessment: 09:05 General: Appears in no apparent distress. comfortable, slender, Behavior is calm, rb1 cooperative, Denies fever. Pain: Complains of pain in umbilical area Pain radiates to right upper quadrant Pain currently is 6 out of 10 on a pain scale. at worst was 10 out of 10 on a pain scale. Pain began x 2 days Aggravated by eating. Neuro: Level of Consciousness is awake, alert, obeys commands, Oriented to person, place, time, situation. Cardiovascular: Capillary refill < 3 seconds is brisk in bilateral fingers. Respiratory: Airway is patent Respiratory effort is even, unlabored, Respiratory pattern is regular, symmetrical. GI: Bowel sounds present X 4 quads. Abd is soft Abdomen is tender to palpation in right upper quadrant Patient currently denies diarrhea, nausea, vomiting. : No signs and/or symptoms were reported regarding the genitourinary system. Derm: Skin is dry, Skin is normal, Skin temperature is warm. Musculoskeletal: Range of motion: intact in all extremities. 09:38 Reassessment: US is at the pt. bedside. rb1 10:00 Reassessment: Patient appears in no apparent distress at this time. No changes from rb1 previously documented assessment. 11:00 Reassessment: Patient appears in no apparent distress at this time. Patient and/or rb1 family updated on plan of care and expected duration. Pain level reassessed. Patient is alert, oriented x 3, equal unlabored respirations, skin warm/dry/pink. 11:21 Reassessment: Discharge pending due to medication administration. rb1 Vital Signs: 09:11 BP 122 / 72; Pulse 71; Resp 16; Pulse Ox 100% ; Weight 71.21 kg; Height 6 ft. 0 in. ss (182.88 cm); Pain 7/10; 10:00 BP 115 / 76; Pulse 69; Resp 17; Pulse Ox 100% on R/A; rb1 10:30 BP 123 / 74; Pulse 65; Resp 18; Pulse Ox 100% on R/A; rb1 11:21 BP 130 / 76; Pulse 68; Resp 19; Pulse Ox 100% on R/A; rb1 09:11 Body Mass Index 21.29 (71.21 kg, 182.88 cm) ED Course: 09:00 Patient arrived in ED. as 09:00 [facility] kb 09:00 Nate Pop MD is Attending Physician. kb 09:05 Patient has correct armband on for positive identification. Placed in gown. Bed in low rb1 position. Call light in reach. Side rails up X 1. Pulse ox on. NIBP on. Warm blanket given. 09:06 Yvette Caldwell, ART is Primary Nurse. rb1 09:10 Triage completed. ss 09:11 Arm band placed on right wrist. ss 09:15 Inserted saline lock: 22 gauge in right antecubital area, using aseptic technique. rb1 Blood collected. 09:23 by me, sent to lab. rb1 10:01 Ultrasound completed. Patient tolerated well. sg3 10:02 US Abdomen Limited In Process Unspecified. EDMS 10:14 CT Abd/Pelvis - IV Contrast Only In Process Unspecified. EDMS 11:06 Dipak Kyle MD is Referral Physician. kb 11:18 CT completed. Patient tolerated procedure well. Patient moved back from CT. bq 11:39 No provider procedures requiring assistance completed. IV discontinued, intact, rb1 bleeding controlled, No redness/swelling at site. Pressure dressing applied. Administered Medications: 09:15 Drug: NS 0.9% 1000 ml Route: IV; Rate: 1000 ml; Site: right antecubital; rb1 10:22 Follow up: IV Status: Completed infusion rb1 11:15 Drug: TORadol - Ketorolac 15 mg Route: IVP; Site: right antecubital; rb1 11:38 Follow up: Response: No adverse reaction rb1 11:15 Drug: Magnesium Citrate Liquid 300 ml Route: PO; rb1 11:38 Follow up: Response: No adverse reaction rb1 Outcome: 11:05 Discharge ordered by MD. kb 11:39 Discharged to home ambulatory, with family. rb1 11:39 Condition: stable 11:39 Discharge instructions given to patient, Instructed on discharge instructions, follow up and referral plans. medication usage, Demonstrated understanding of instructions, follow-up care, medications, Prescriptions given X 2. 11:39 Patient left the ED. rb1 Signatures: Dispatcher [employer] EDMS Samantha Allred, AUDIE WATSONP-Coby Guo Amelia as Smirch, Shelby, RN RN ss Yvette Caldwell RN RN rb1 Manuela Corea sg3 Corrections: (The following items were deleted from the chart) 09:43 09:05 GI: Patient currently denies diarrhea, nausea, vomiting, rb1 rb1
[2019-05-17] MEDS ORDERED: KETOROLAC 30 MG/ML INJ ONE (11:18)
[2019-05-17] MEDS ORDERED: MAGNESIUM CITRATE 300 ML BOT ONE (11:18)
[2019-05-17 11:34] LABS: Urine Blood NEGATIVE (NEG); Urine Glucose NEGATIVE (NEG); Urine Protein NEGATIVE (NEG); Urine Specific Gravity 1.015 (1.005-1.030)
[2019-05-17 12:11] VITALS: O2SAT 100
[2019-05-17 12:16] VITALS: BP 130/76
== END 2019-05-17 11:39 | disposition home or self-care (01) ==
LOC: ER 08:58
DX: K40.90 Unilateral inguinal hernia, without obstruction or gangrene, not specified as recurrent (principal); N32.9 Bladder disorder, unspecified; E11.9 Type 2 diabetes mellitus without complications
CPT/HCPCS: 36415; 74177; 76705; 80048; 80076; 81003; 83690; 85025; 96361; 96374; 99284; J7030; Q9967